=== PATIENT | female | born 1995 | race Caucasian/White ===

== ENCOUNTER → 2022-05-16 15:43 | Outpatient (BNVA) | payer BC, MEDICAID, SELFPAY | PROVIDERS: Family Provider Family Medicine; Visit Provider Nurse Practitioner Family | DX: N92.6 Irregular menstruation, unspecified (principal) | CPT/HCPCS: 84702 ==

== ENCOUNTER → 2022-05-18 13:29 | Outpatient (BNVA) | payer BC, MEDICAID, SELFPAY | PROVIDERS: Family Provider Family Medicine; Visit Provider Nurse Practitioner Family | DX: O46.90 Antepartum hemorrhage, unspecified, unspecified trimester (principal); R30.0 Dysuria; K90.49 Malabsorption due to intolerance, not elsewhere classified; R11.10 Vomiting, unspecified | CPT/HCPCS: 81003; 84703; 86003; 86008; 87086 ==

== ENCOUNTER 2023-06-18 15:04 | Outpatient (CLI) | payer BC, MEDICAID, SELFPAY ==
[2023-06-18 15:05] VITALS: BMI 21.6
[2023-06-18 15:18] VITALS: BP 125/68; PULSE 92
[2023-06-18 15:39] VITALS: BP 118/62; PULSE 96
[2023-06-18 15:58] VITALS: BP 117/61; PULSE 80
[2023-06-18 17:00] VITALS: BP 117/61; PULSE 80; RESP 16
== END 2023-06-18 16:05 | disposition home or self-care (01) ==
LOC: OPOB 15:07 → OBGYN 15:08
PROVIDERS: Family Provider Family Medicine; Visit Provider Obstetrics & Gynecology
DX: O26.899 Other specified pregnancy related conditions, unspecified trimester (principal); Z3A.00 Weeks of gestation of pregnancy not specified; R10.9 Unspecified abdominal pain
CPT/HCPCS: 59025; 99211